=== PATIENT | female | born 1990 ===

== ENCOUNTER 2018-08-31 07:44 | Emergency (ER) | payer OTHER ==
[2018-08-31 07:51] VITALS: BMI 32.2
[2018-08-31 07:57] VITALS: RESP 18; TEMP 98.4
[2018-08-31 08:44] LABS: BASO # 0.04 K/mm3 (0.0-2.0); BASO % 0.3 % (0.0-3.0); EOS # 0.4 (0.0-0.7); EOS % 3.6 % (1.5-5.0); HEMOGLOBIN 13.6 g/dL (12.0-16.0); LYMPH # 5.2 (1.2-3.4); MEAN CELL VOLUME 84.5 fl (80.0-105.0); MEAN CORPUSCULAR HEMOGLOBIN 28.5 pg (25.0-35.0); MEAN CORPUSCULAR HGB CONC 33.7 g/dl (31.0-37.0); MEAN PLATELET VOLUME 10.6 fl (7.0-11.0); MONO # 0.8 (0.1-0.6); MONO % 6.8 % (1.0-6.0); RBC 4.77 10^6/uL (3.5-6.1); RED CELL DISTRIBUTION WIDTH 12.7 % (11.5-14.5); WHITE BLOOD COUNT 11.5 10^3/uL (4.5-11.0)
--- NOTE | 2018-08-31 08:44 | ED PDOC ---
Arrival/HPI - General Historian: Patient - History of Present Illness Narrative History of Present Illness (Text): 08/31/2018 08:15 Patient is a 28 year old female with no significant past medical history presenting with chief complaint of chest discomfort located in mid sternum which woke her up from sleep two hours prior. Pain is sharp, with radiation down her right arm. Denies any associated dyspnea or diaphoresis. Patient also admits to a 1-2 minute episode of dizziness and blurry vision which began around the same time as the chest pain. Denies recent travel or sick contacts. Denies fevers, chills, shortness of breath, nausea, vomiting, abdominal pain, diarrhea, dysu milana, vaginal discharge. Also denies any recent heavy lifting or exercise. History was obtained with assistance of pension adviser #[id number]. Time/Duration: 1-3 hours Symptom Onset: Sudden Quality: Stabbing Activities at Onset: Sleeping <Adrian Kearney - Last Filed: 08/31/18 11:53> <Nirmal Mills - Last Filed: 08/31/18 12:19> - General Chief Complaint: Chest Pain Time Seen by Provider: 08/31/18 07:52 Past Medical History - Provider Review Nursing Documentation Reviewed: Yes - Psychiatric Hx Substance Use: No <Adrian Kearney - Last Filed: 08/31/18 11:53> Family/Social History - Physician Review Nursing Documentation Reviewed: Yes Family/Social History: No Known Family HX Smoking Status: Never Smoked Hx Alcohol Use: No Hx Substance Use: No <Adrian Kearney - Last Filed: 08/31/18 11:53> Allergies/Home Meds <Adrian Kearney - Last Filed: 08/31/18 11:53> <Nirmal Mills - Last Filed: 08/31/18 12:19> Allergies/Adverse Reactions: Allergies No Known Allergies Allergy (Verified 08/31/18 07:49) Review of Systems - Physician Review All systems were reviewed & negative as marked: Yes - Review of Systems ENT: Normal Respiratory: Normal Cardiovascular: Chest Pain Gastrointestinal: Normal Genitourinary Female: Normal Neurological: Dizziness <Adrian Kearney - Last Filed: 08/31/18 11:53> Physical Exam Vital Signs Reviewed: Yes Vital Signs Temp Pulse Resp BP Pulse Ox 08/31/18 07:50 98.4 F 89 18 133/79 100 Temperature: Afebrile Blood Pressure: Normal Pulse: Regular Respiratory Rate: Normal Appearance: Positive for: Well-Appearing, Comfortable Pain Distress: None Mental Status: Positive for: Alert and Oriented X 3 - Systems Exam Head: Present: Atraumatic, Normocephalic Extroacular Muscles: Present: EOMI Conjunctiva: Present: Normal Mouth: Present: Moist Mucous Membranes Respiratory/Chest: Present: Clear to Auscultation, Good Air Exchange, Tender to Palpation. No: Respiratory Distress, Accessory Muscle Use Cardiovascular: Present: Regular Rate and Rhythm, Normal S1, S2. No: Tachycardic Abdomen: Present: Normal Bowel Sounds. No: Tenderness, Distention Lower Extremity: Present: Normal Inspection. No: Edema Neurological: Present: GCS=15, CN II-XII Intact, Speech Normal, Normal Sensory Function Skin: Present: Warm, Dry, Normal Color Psychiatric: Present: Alert, Oriented x 3 <Adrian Kearney - Last Filed: 08/31/18 11:53> Vital Signs Temp Pulse Resp BP Pulse Ox 08/31/18 07:50 98.4 F 89 18 133/79 100 <Nirmal Mills - Last Filed: 08/31/18 12:19> Medical Decision Making ED Course and Treatment: 08/31/18 07:57 Impression: 28 year old female with chest discomfort and presyncope Plan: - CBC, CMP - EKG, troponin - CXR - urine - Reassess and disposition Prior Visits: Notes and results from previous visits were reviewed. Progress Notes: 08/31/18 10:39 Labs and imaging reviewed. Patient hemodynamically stable, optimized for discharge and followup with PMD and track greaser. - Lab Interpretations I have reviewed the lab results: Yes - RAD Interpretation Radiology Orders: 08/31/18 08:17 CXR [CHEST PORTABLE] [RAD] Stat - EKG Interpretation EKG Interpretation (Text): 08/31/18 08:51 NSR Interpreted by ED Physician: Yes Type: 12 lead EKG <Adrian Kearney - Last Filed: 08/31/18 11:53> ED Course and Treatment: Patient Seen with Resident: In agreement with resident note which contains more details about the patient. Patient seen and evaluated with resident. Came up with plan and treatment together. 28 year old female presents complaining of midsternal chest discomfort that woke her up from sleep 2 hours prior to arrival associated with episodes of dizziness and blurry vision. Plan: -- Labs -- EKG -- Chest X-ray -- POC Urine Test -- Reassess and disposition - Lab Interpretations Lab Results: Troponin I < 0.01 ng/mL 08/31/18 09:00 Total Bilirubin 0.7 mg/dL (0.2-1.3) 08/31/18 09:00 AST 33 U/L (14-36) 08/31/18 09:00 ALT 24 U/L (7-56) 08/31/18 09:00 Alkaline Phosphatase 76 U/L (38-126) 08/31/18 09:00 Total Protein 7.5 g/dL (5.8-8.3) 08/31/18 09:00 Albumin 4.1 g/dL (3.0-4.8) 08/31/18 09:00 Globulin 3.5 gm/dL 08/31/18 09:00 Albumin/Globulin Ratio 1.2 (1.1-1.8) 08/31/18 09:00 - RAD Interpretation Narrative RAD Interpretations (Text): CXR Impression: As read by me, no artifacts, no cardiomegaly Radiology Orders: 08/31/18 08:17 CXR [CHEST PORTABLE] [RAD] Stat Communication Equipment Mechanic: ED Physician - EKG Interpretation EKG Interpretation (Text): 08/31/18 07:54 EKG shows NSR at 95 BPM normal QRS, normal axis, no acute ST/T wave abnormalities. Interpreted by me. <Nirmal Mills - Last Filed: 08/31/18 12:19> - Scribe Statement The provider has reviewed the documentation as recorded by the Scribe Aelxx Rose Provider Scribe Attestation: All medical record entries made by the Scribe were at my direction and personally dictated by me. I have reviewed the chart and agree that the record accurately reflects my personal performance of the history, physical exam, medical decision making, and the department course for this patient. I have also personally directed, reviewed, and agree with the discharge instructions and disposition. <Nirmal Mills - Last Filed: 08/31/18 12:19> Disposition/Present on Arrival - Present on Arrival Any Indicators Present on Arrival: No History of DVT/PE: No History of Uncontrolled Diabetes: No Urinary Catheter: No History of Decub. Ulcer: No History Surgical Site Infection Following: None - Disposition Have Diagnosis and Disposition been Completed?: Yes Disposition Time: 10:26 <Adrian Kearney - Last Filed: 08/31/18 11:53> <Nirmal Mills - Last Filed: 08/31/18 12:19> - Disposition Diagnosis: Chest wall discomfort, Pre-syncope Disposition: HOME/ ROUTINE Condition: STABLE Discharge Instructions (ExitCare): Costochondritis (DC), Near Fainting (DC) Print Language: GEORGIAN Additional Instructions: Follow up with your primary medical doctor and neurologist within one week. Drink plenty of fluids and stay hydrated. Return to ED if symptoms return or worsen. Prescriptions: Ibuprofen [Motrin Tab] 600 mg PO QID #30 tab Referrals: [facility] [place] - Follow up with primary David Zazueta MD [Staff Provider] - Follow up with primary Forms: [employer] (Taiwanese)
[2018-08-31 09:36] LABS: ALB/GLOB RATIO 1.2 (1.1-1.8); ALBUMIN 4.1 g/dL (3.0-4.8); ALT/SGPT 24 U/L (7-56); AST/SGOT 33 U/L (14-36); BLOOD UREA NITROGEN 12 mg/dL (7-21); CALCIUM 9.2 mg/dL (8.4-10.5); GFR NON-AFRICAN AMERICAN > 60
[2018-08-31 09:46] LABS: TROPONIN I < 0.01 ng/mL
[2018-08-31 10:54] VITALS: BP 127/80; PULSE 78; O2SAT 98
--- NOTE | 2018-08-31 10:58 | RAD ---
Date of service: 08/31/2018 HISTORY: chest discomfort COMPARISON: No prior. TECHNIQUE: 1 view obtained. FINDINGS: LUNGS: No active pulmonary disease. PLEURA: No significant pleural effusion identified, no pneumothorax apparent. CARDIOVASCULAR: No aortic atherosclerotic calcification present. Normal cardiac size. No pulmonary vascular congestion. OSSEOUS STRUCTURES: No significant abnormalities. VISUALIZED UPPER ABDOMEN: Normal. OTHER FINDINGS: None. IMPRESSION: No active disease.
--- NOTE | 2018-08-31 19:21 | CARD ---
APPROVED REPORT Date of service: 08/31/2018 EKG Measurement Heart [id number] CT [id number] <Conclusion> Normal sinus rhythm Normal ECG
== END 2018-08-31 10:54 | disposition home or self-care (01) ==
LOC: ED 07:44
DX: R07.89 Other chest pain (principal); R55 Syncope and collapse